=== PATIENT | female | born 1970 | race Caucasian/White ===

== ENCOUNTER → 2021-11-09 01:45 | Outpatient (CLI) | payer OTHER, SELFPAY ==
[2021-11-09 19:33] LABS: SARS-CoV-2 RNA PCR Negative
== END ==
PROVIDERS: PCP Family Medicine Adolescent Medicine; Visit Provider Physician Assistant
DX: R05.9 Cough, unspecified (principal); R51.9 Headache, unspecified; Z20.822 Contact with and (suspected) exposure to COVID-19
CPT/HCPCS: C9803; U0003; U0005